=== PATIENT | male | born 1980 | race Hispanic/Latino ===

== ENCOUNTER 2018-05-04 16:01 | Inpatient (IN) | payer MEDICARE, MEDICAID, OTHER ==
[2018-05-04 16:47] LABS: BASO # 0.1 10^3/uL (0.0-0.2); BASO % 0.4 % (0.0-1.0); EOS # 0.2 10^3/uL (0.0-0.50); HEMATOCRIT 43.1 % (42.0-52.0); HEMOGLOBIN 14.2 g/dl (13.5-17.5); IMMATURE GRANULOCYTE % 0.4 % (0-3.0); LYMPH # 3.2 10^3/uL (1.5-4.5); LYMPH % 19.2 % (24.0-44.0); MEAN CORPUSCULAR HEMOGLOBIN 29.6 pg (27.0-33.0); MEAN CORPUSCULAR HGB CONC 32.9 g/dl (32.0-36.5); MEAN CORPUSCULAR VOLUME 89.8 fl (80.0-96.0); MONO # 0.8 10^3/uL (0.0-0.8); MONO % 4.8 % (0.0-5.0); NEUTROPHILS # 12.3 10^3/uL (1.8-7.7); NEUTROPHILS % 74.2 % (36.0-66.0); PLATELET COUNT, AUTOMATED 270 10^3/uL (150-450); RED CELL DISTRIBUTION WIDTH 12.6 % (11.5-14.5); WHITE BLOOD COUNT 16.5 10^3/uL (4.0-10.0)
[2018-05-04 16:57] LABS: LACTIC ACID SEPSIS PROTOCOL 1.7 MMOL/L (0.4-2.0)
[2018-05-04 16:58] LABS: ALBUMIN/GLOBULIN RATIO 1.11 (1.00-1.93); ALKALINE PHOSPHATASE 94 U/L (45-117); ALT/SGPT 34 U/L (12-78); ANION GAP 9 MEQ/L (8-16); AST/SGOT 20 U/L (7-37); BILIRUBIN,DIRECT 0.1 MG/DL (0.0-0.2); BILIRUBIN,TOTAL 0.4 MG/DL (0.2-1.0); BLOOD UREA NITROGEN 8 MG/DL (7-18); CALCIUM LEVEL 8.9 MG/DL (8.5-10.1); CARBON DIOXIDE LEVEL 27 MEQ/L (21-32); CHLORIDE LEVEL 105 MEQ/L (98-107); CREATININE FOR GFR 0.92 MG/DL (0.70-1.30); GLOMERULAR FILTRATION RATE > 60.0 (>60); GLUCOSE, FASTING 106 MG/DL (70-100); LIPASE 117 U/L (73-393); POTASSIUM SERUM 3.9 MEQ/L (3.5-5.1); SODIUM LEVEL 141 MEQ/L (136-145); TOTAL PROTEIN 7.6 GM/DL (6.4-8.2)
[2018-05-04] MEDS: NS 1,000 ML IV (17:40)
[2018-05-04] MEDS ORDERED: ISOVUE-370 76% 100ML VIAL (Q9967) As Ordered (17:51)
[2018-05-04 18:12] LABS: KETONE, URINE AUTO RFX 1+ mg/dL (NEGATIVE); LEUKOCYTE ESTERASE UR AUTO RFX NEGATIVE (NEGATIVE); MUCUS, URINE RFX SMALL (NEGATIVE); NITRITE, URINE AUTO RFX NEGATIVE (NEGATIVE); RBC, URINE AUTO RFX 0 /HPF (0-3); SPECIFIC GRAVITY UR AUTO RFX 1.012 (1.002-1.035); SQUAM EPITHELIAL CELL UR AURFX 0 /HPF (0-6); WBC, URINE AUTO RFX 1 /HPF (0-3)
[2018-05-04] MEDS ORDERED: ONDANSETRON 4MG/2ML VIAL (J2405) As Ordered (19:17)
[2018-05-04] MEDS: MORPHINE 4 MG/ML 1ML VIAL/SYRINGE (J2270) IV (19:30)
[2018-05-04] MEDS: ONDANSETRON 4MG/2ML VIAL (J2405) IV (19:30)
[2018-05-04] MEDS: CIPROFLOXACIN 400 MG in APPROPRIATE DILUENT 1 EA IV (20:08)
[2018-05-04] MEDS: metroNIDAZOLE 500 MG in APPROPRIATE DILUENT 1 EA IV (20:59)
[2018-05-04] MEDS: OMEPRAZOLE 20 MG CAP PO (21:00)
[2018-05-04] MEDS: HYDROmorphone HCL 1 MG/ML SYRINGE (J1170) IV (22:05)
[2018-05-05] MEDS ORDERED: ACETAMINOPHEN TAB 650MG DOSE (2X325MG) PO
[2018-05-05] MEDS ORDERED: ALBUTEROL 90 MCG/ACT 8GM HFA INHALER INH
[2018-05-05] MEDS ORDERED: BACLOFEN 10 MG TAB PO
[2018-05-05] MEDS: NS 1,000 ML IV ×2 (03:27→16:02)
[2018-05-05] MEDS: metroNIDAZOLE 500 MG in APPROPRIATE DILUENT 1 EA IV ×3 (04:09→20:13)
[2018-05-05] MEDS: KETOROLAC 30 MG/ML VIAL (J1885) IV ×3 (04:09→18:50)
[2018-05-05 06:48] LABS: BASO % 0.2 % (0.0-1.0); EOS % 0.1 % (0.0-3.0); HEMATOCRIT 38.1 % (42.0-52.0); HEMOGLOBIN 12.8 g/dl (13.5-17.5); IMMATURE GRANULOCYTE % 0.4 % (0-3.0); LYMPH # 1.9 10^3/uL (1.5-4.5); LYMPH % 11.3 % (24.0-44.0); MEAN CORPUSCULAR HEMOGLOBIN 29.7 pg (27.0-33.0); MEAN CORPUSCULAR HGB CONC 33.6 g/dl (32.0-36.5); MEAN CORPUSCULAR VOLUME 88.4 fl (80.0-96.0); MONO # 1.1 10^3/uL (0.0-0.8); MONO % 6.6 % (0.0-5.0); NEUTROPHILS # 13.4 10^3/uL (1.8-7.7); NEUTROPHILS % 81.4 % (36.0-66.0); PLATELET COUNT, AUTOMATED 241 10^3/uL (150-450); RED BLOOD COUNT 4.31 10^6/uL (4.30-6.10); RED CELL DISTRIBUTION WIDTH 12.9 % (11.5-14.5); WHITE BLOOD COUNT 16.4 10^3/uL (4.0-10.0)
[2018-05-05 07:06] LABS: ANION GAP 9 MEQ/L (8-16); BLOOD UREA NITROGEN 7 MG/DL (7-18); CALCIUM LEVEL 8.2 MG/DL (8.5-10.1); CARBON DIOXIDE LEVEL 26 MEQ/L (21-32); CHLORIDE LEVEL 105 MEQ/L (98-107); CREATININE FOR GFR 0.85 MG/DL (0.70-1.30); GLOMERULAR FILTRATION RATE > 60.0 (>60); GLUCOSE, FASTING 110 MG/DL (70-100); POTASSIUM SERUM 3.6 MEQ/L (3.5-5.1); SODIUM LEVEL 140 MEQ/L (136-145)
[2018-05-05] MEDS: OMEPRAZOLE 20 MG CAP PO ×2 (09:18→20:14)
[2018-05-05] MEDS: CIPROFLOXACIN 400 MG in APPROPRIATE DILUENT 1 EA IV ×2 (09:18→20:13)
[2018-05-05] MEDS: ENOXAPARIN 40 MG/0.4 ML SYRINGE (J1650) SC (09:19)
[2018-05-05] MEDS: ONDANSETRON 4MG/2ML VIAL (J2405) IV (09:28)
[2018-05-06] MEDS: metroNIDAZOLE 500 MG in APPROPRIATE DILUENT 1 EA IV (04:53)
[2018-05-06] MEDS: NS 1,000 ML IV (04:54)
[2018-05-06 07:32] LABS: BASO % 0.2 % (0.0-1.0); EOS % 0.3 % (0.0-3.0); HEMATOCRIT 36.2 % (42.0-52.0); HEMOGLOBIN 11.8 g/dl (13.5-17.5); IMMATURE GRANULOCYTE % 0.4 % (0-3.0); LYMPH % 13.9 % (24.0-44.0); MEAN CORPUSCULAR HEMOGLOBIN 29.2 pg (27.0-33.0); MEAN CORPUSCULAR HGB CONC 32.6 g/dl (32.0-36.5); MEAN CORPUSCULAR VOLUME 89.6 fl (80.0-96.0); MONO # 1.1 10^3/uL (0.0-0.8); MONO % 7.8 % (0.0-5.0); NEUTROPHILS # 10.9 10^3/uL (1.8-7.7); NEUTROPHILS % 77.4 % (36.0-66.0); PLATELET COUNT, AUTOMATED 214 10^3/uL (150-450); RED BLOOD COUNT 4.04 10^6/uL (4.30-6.10); RED CELL DISTRIBUTION WIDTH 12.8 % (11.5-14.5); WHITE BLOOD COUNT 14.1 10^3/uL (4.0-10.0)
[2018-05-06 07:53] LABS: ALBUMIN/GLOBULIN RATIO 0.88 (1.00-1.93); ALKALINE PHOSPHATASE 80 U/L (45-117); ALT/SGPT 23 U/L (12-78); ANION GAP 9 MEQ/L (8-16); AST/SGOT 15 U/L (7-37); BILIRUBIN,TOTAL 0.5 MG/DL (0.2-1.0); BLOOD UREA NITROGEN 5 MG/DL (7-18); CALCIUM LEVEL 7.9 MG/DL (8.5-10.1); CARBON DIOXIDE LEVEL 26 MEQ/L (21-32); CHLORIDE LEVEL 108 MEQ/L (98-107); CREATININE FOR GFR 0.81 MG/DL (0.70-1.30); GLOMERULAR FILTRATION RATE > 60.0 (>60); GLUCOSE, FASTING 100 MG/DL (70-100); MAGNESIUM LEVEL 1.9 MG/DL (1.8-2.4); POTASSIUM SERUM 3.7 MEQ/L (3.5-5.1); SODIUM LEVEL 143 MEQ/L (136-145); TOTAL PROTEIN 6.4 GM/DL (6.4-8.2)
[2018-05-06] MEDS: CIPROFLOXACIN 400 MG in APPROPRIATE DILUENT 1 EA IV (08:05)
[2018-05-06] MEDS: KETOROLAC 30 MG/ML VIAL (J1885) IV (08:18)
[2018-05-06] MEDS: OMEPRAZOLE 20 MG CAP PO (08:18)
[2018-05-06] MEDS: ENOXAPARIN 40 MG/0.4 ML SYRINGE (J1650) SC (08:18)
== END 2018-05-06 13:50 | disposition home or self-care (01) | DRG 392 ==
LOC: M ED INP 23:56 → M MS4PR 05-05 03:21 → M PED 05-05 15:53 → M ED 16:01
DX: K57.32 Diverticulitis of large intestine without perforation or abscess without bleeding (principal); M54.40 Lumbago with sciatica, unspecified side; D72.829 Elevated white blood cell count, unspecified

== ENCOUNTER → 2018-05-25 | Outpatient (REF) | LOC: M SMT 15:16 | DX: Z00.00 Encounter for general adult medical examination without abnormal findings (principal) ==

== ENCOUNTER 2018-10-13 07:35 | Day surgery (SDC) | payer OTHER, MEDICARE, MEDICAID ==
[~2018-10-13 07:35] MED LIST: LIDOCAINE 2% INJ 100 MG/5 ML SDV (FOR ANES.) As Ordered; PROPOFOL 200 MG/20 ML VIAL As Ordered
[2018-10-13] MEDS: NS 1,000 ML IV (07:45)
== END 2018-10-13 09:51 | disposition home or self-care (01) ==
LOC: M OPP 07:35
DX: K57.30 Diverticulosis of large intestine without perforation or abscess without bleeding (principal); K64.0 First degree hemorrhoids; D12.6 Benign neoplasm of colon, unspecified
CPT/HCPCS: 45380

== ENCOUNTER → 2019-11-25 | Outpatient (CLI) | payer OTHER ==
[~2019-11-25] MED LIST changes: +BACL10TA2 PO; +CIPR-249 PO; +CIPR500T3 PO; +FLAG250T PO; +FLAG500T PO; +FLEX10TA2 PO; +GEMF600T PO; +IBUPPOW25 PO; -LIDOCAINE 2% INJ 100 MG/5 ML SDV (FOR ANES.) As Ordered; +NAPR500T2 PO; +OMEP-172 PO; +OMEP40CA97 PO; +OMEPPOW18 PO; +OXYC1TAB23 PO; -PROPOFOL 200 MG/20 ML VIAL As Ordered; +SENN1TAB3 PO; +SENO8.6T9 PO; +SIME1CAP5 PO; +VENTAER INH
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
== END ==
LOC: M PAIN 10:30
PROVIDERS: ATTEND Family Medicine
DX: M51.16 Intervertebral disc disorders with radiculopathy, lumbar region (principal)

== ENCOUNTER → 2019-12-23 | Outpatient (CLI) | payer OTHER ==
[~2019-12-23] MED LIST changes: -OMEP-172 PO; +OMEP1CAP73 PO
--- NOTE | 2019-12-27 02:59 | ECWPNPC ---
PATIENT NAME: HARDEEP LEBRON : 1980 GENDER: MALE VISIT DATE: 12/23/2019 DISCHARGE DATE: 12/23/19 1215 VISIT LOCKED DATE TIME: PHYSICIAN: PILAR BRUNO RESOURCE: PILAR BRUNO REASON FOR APPOINTMENT 1. MEDICATION LOW BACK PAIN HISTORY OF PRESENT ILLNESS HISTORY OF PRESENT ILLNESS: PAIN THE PATIENT DESCRIBES THE PAIN... 39 YEAR OLD MALE IN FOR CHRONIC PAIN FOLLOW UP. AT LAST CLINIC VISIT HE WAS STARTED ON GABAPENTIN AND ADMITS TODAY THAT THIS HAS BEEN HELPFUL IN REDUCING HIS PAIN. HE RATES HIS PAIN AT A 3/10 CURRENLTY AND DESCRIBES IT ACHING, SHARP, AND SORE. FALL RISK SCREENING: SCREENING :NO FALLS REPORTED IN THE LAST YEAR CURRENT MEDICATIONS TAKING OMEPRAZOLE 20 MG CAPSULE DELAYED RELEASE 1 CAPSULE 30 MINUTES BEFORE MORNING MEAL ORALLY ONCE A DAY TAKING CYCLOBENZAPRINE HCL 10 MG TABLET 1 TABLET ORALLY THREE TIMES DAILY NEEDED TAKING TRAMADOL HCL 50 MG TABLET 1 TABLET NEEDED ORALLY THREE TIMES DAILY NEEDED TAKING DICYCLOMINE HCL 10 MG CAPSULE 2 CAPSULES ORALLY THREE TIMES A DAY TAKING METOPROLOL SUCCINATE 50 MG CAPSULE ER 24 HOUR SPRINKLE 1 CAPSULE ORALLY ONCE A DAY TAKING VITAMIN D (ERGOCALCIFEROL) 1.25 MG (75731 UT) CAPSULE 1 CAPSULE ORALLY ONCE A WEEK TAKING GABAPENTIN 300 MG CAPSULE 1 CAPSULE ORALLY THREE TIMES DAILY START WEEK 3 NOT-TAKING GABAPENTIN 100 MG CAPSULE 1 CAPSULE ORALLY THREE TIMES DAILY MEDICATION LIST REVIEWED AND RECONCILED WITH THE PATIENT PAST MEDICAL HISTORY LOW BACK PAIN BORDERLINE HYPERTENSION NECK PAIN KNEE PAIN DIVERTICULITIS ALLERGIES N.K.D.A. SURGICAL HISTORY RIGHT KNEE FAMILY HISTORY FATHER: ALIVE, DIAGNOSED WITH DIABETES MOTHER: ALIVE, HYPERTENSION 1 BROTHER(S) , 1 SISTER(S) . 2 SON(S) , 1 DAUGHTER(S) - HEALTHY. MOM WITH CADONE BROTHER WITH DIABETES, . SOCIAL HISTORY GENERAL: TOBACCO USE ARE YOU A:NONSMOKER PAIN CLINIC PFS, CLERGY, PUBLIC HEALTH REFERRALS HAS THE PATIENT BEEN EDUCATED REGARDING HIS/HER PLAN OF CARE?YES HAS THE PATIENT BEEN EDUCATED REGARDING PAIN, THE RISK FOR PAIN, THE IMPORTANCE OF EFFECTIVE PAIN MANAGEMENT, AND THE PAIN ASSESSMENT PROCESS?YES LATEX QUESTIONNAIRE LATEX ALLERGY : HAVE YOU EVER DEVELOPED ANY TYPE OF REACTION AFTER HANDLING LATEX PRODUCTS SUCH RUBBER GLOVES, CONDOMS, DIAPHRAGMS, BALLOONS, SOCKS, OR UNDERWEAR?NO LATEX ALLERGY : HAVE YOU EVER DEVELOPED ANY TYPE OF REACTION DURING OR AFTER DENTAL APPOINTMENT, VAGINAL/RECTAL EXAMINATION, SURGICAL PROCEDURE, OR ANY OTHER EXPOSURE?NO DATE ASKED : 11/17/2019 LATEX RISK : HAVE YOU EVER HAD ANY DIFFICULTY BREATHING OR HIVES AFTER EATING OR HANDLING ANY FRUITS, OR VEGETABLES; SUCH KIWI, BANANAS, STONE FRUITS, OR CHESTNUTSNO LATEX RISK : DO YOU HAVE A PREVIOUS PERSONAL HISTORY OF MORE THAN NINE SURGERIES, SPINA BIFIDA, OR REPEATED CATHERIZATIONS? NO LATEX RISK : ARE YOU FREQUENTLY EXPOSED TO LATEX PRODUCTS IN YOUR OCCUPATION?NO CAFFEINE CAFFEINE USE?YES COFFEE 1-2 CUPS ADVANCE DIRECTIVE ADVANCE DIRECTIVE DISCUSSED WITH PATIENT:YES PT HAS NO ADVANCED DIRECTIVES, DECLINES INFORMATION OR ASSISTANCE AT THIS TIME 12/23/2019 DIET: REGULAR. MU-ISM [id number] ORIENTAL ORTHODOX LANGUAGE LANGUAGES SPOKEN:BOTH GERMAN AND DUTCH AND TELUGU DOMESTIC VIOLENCE DO YOU FEEL SAFE IN YOUR ENVIRONMENT?YES RECREATIONAL DRUG USE DRUG USE?NO LEARNING BARRIERS / SPECIAL NEEDS BARRIERS TO LEARNING?NO HEARING IMPAIRED?NO VISION IMPAIRED?YES WEARS GLASSES COGNITIVELY IMPAIRED?NO READINESS TO LEARN?YES LEARNING PREFERENCES?NO LEARNING CAPABILITIES PRESENT?YES EMOTIONAL BARRIERS?NO SPECIAL DEVICES?NO DIRECTOR EXPORT NEEDED?NO 11/17/19 NEW PATIENT CONSULT PRE SCREENING 1700 LAS. HOSPITALIZATION/MAJOR DIAGNOSTIC PROCEDURE BACK PAIN REVIEW OF SYSTEMS REVIEWED BY: PROVIDER: TOMMIE BERRY-C . CONSTITUTIONAL: ANY CHANGE IN YOUR MEDICAL CONDITION? NO . CHILLS NO . FEVER NO . INFECTION: DO YOU HAVE NEW INFECTIONS? NO . DO YOU HAVE HISTORY OF MRSA? NO . MUSCULOSKELETAL: ANY NEW PATTERNS OF PAIN OR NUMBNESS? NO . GASTROENTEROLOGY: ANY NEW CHANGE IN BOWEL CONTROL? NO . GENITOURINARY: ANY NEW CHANGE IN BLADDER CONTROL? NO . IS THERE A CHANCE YOU COULD BE ? NO . HEMATOLOGY/LYMPH: DO YOU TAKE ANY BLOOD THINNERS? (FOR EXAMPLE- COUMADIN, PLAVIX, AGGRENOX, PLATEL, PRADAXA, OR XARELTO) NO . WHEN WAS YOUR LAST DOSE? DATE: TIME: . NEUROLOGY: HAVE YOU FALLEN IN THE PAST 12 MONTHS? NO . ANY NEW EXTREMITY NUMBNESS OR WEAKNESS? NO . CARDIOLOGY: DO YOU HAVE A PACEMAKER OR DEFIBRILLATOR? NO . RESPIRATORY: HAVE YOU BEEN SICK IN THE PAST WEEK? NO . FEVER NO . FLU LIKE SYMPTOMS? NO . COUGH NO . INTEGUMENTARY: DO YOU HAVE ANY RASHES OR OPEN SORES? NO . ALLERGIC/IMMUNO: ARE YOU ALLERGIC TO IV DYE? NO . ANY NEW ALLERGIES? NO . PSYCHIATRIC: DO YOU HAVE THOUGHTS OF HURTING YOURSELF OR SOMEONE ELSE? NO . ARE YOU ABUSED, NEGLECTED, OR IN AN UNSAFE ENVIRONMENT? NO . ENDOCRINOLOGY: ARE YOU DIABETIC? NO . OTHER: DO YOU NEED ANY PRESCRIPTIONS? NO . IF YES, PLEASE LIST: ____ . ANY NEW PROBLEMS WITH YOUR MEDICATIONS? NO . WHEN DID YOU LAST EAT? ____ . WHEN DID YOU LAST DRINK? ____ . WHAT DID YOU LAST DRINK? ____ . NAME OF PERSON DRIVING YOU HOME? ____ . DO YOU HAVE ANY OTHER QUESTIONS OR CONCERNS NO . VITAL SIGNS WT 298.6 LBS, HT 71 IN, BMI 41.64 INDEX, BP 137/74 MM HG, HR 84 /MIN, RR 16 /MIN, TEMP 98.5 F, OXYGEN SAT % 99%, SAFE IN ENV? (Y/N) YES, REVIEWED BY: ROSALINDA. EXAMINATION GENERAL EXAMINATION: GENERALNO ACUTE DISTRESS, WELL NOURISHED AND HYDRATED. PSYCHAPPROPRIATE MOOD AND AFFECT . LUNGS:CLEAR TO AUSCULTATION BILATERALLY, NO WHEEZES, RHONCHI, RALES. HEART:NO MURMURS, REGULAR RATE AND RHYTHM. ASSESSMENTS INTERVERTEBRAL DISC DISORDER WITH RADICULOPATHY OF LUMBAR REGION - M51.16 (PRIMARY) TREATMENT INTERVERTEBRAL DISC DISORDER WITH RADICULOPATHY OF LUMBAR REGION START GABAPENTIN CAPSULE, 400 MG, 1 CAPSULE, ORALLY, THREE TIMES DAILY, 90 DAYS, 270 CLINICAL NOTES: 39 YEAR OLD MALE IN FOR CHRONIC PAIN FOLLOW UP. GIVEN PRESENTING SYMPTOMS AND RESULTS OF PHYSICAL EXAMINATION RECOMMEND CONTINUED USE OF GABAPENTIN WITH FOLLOW UP IN 3 MONTHS. PATIENT HAS EXPRESSED UNDERSTANDING OF AND WAS IN AGREEMENT WITH TX PLAN. GIVEN TIME TO ASK QUESTIONS AND EXPRESS CONCERNS.. PREVENTIVE MEDICINE PAIN CLINIC TEACHING: MEDICATIONS MEDICATION CHANGES REVIEWED WITH PATIENT, PATIENT VERBALIZES UNDERSTANDING. 12/23/2019 ROSALINDA. PROCEDURE CODES FA211 ESTABILISHED PATIENT [facility] CHARGE DISPOSITION & COMMUNICATION FOLLOW UP 3 MONTHS (REASON: BACK PAIN) ELECTRONICALLY SIGNED BY JAMAL RODNEY ON 12/26/2019 AT 08:35 AM EST DISCLAIMER : THIS IS A VISIT SUMMARY EXTRACTED FROM THE [employer] CHART. IT IS NOT A COPY OF THE [employer] PROGRESS NOTE. KONG
== END ==
LOC: M PAIN 11:30
PROVIDERS: ATTEND Family Medicine
DX: M51.16 Intervertebral disc disorders with radiculopathy, lumbar region (principal); G89.29 Other chronic pain; E66.01 Morbid (severe) obesity due to excess calories; Z68.41 Body mass index [BMI] 40.0-44.9, adult; Z79.899 Other long term (current) drug therapy

== ENCOUNTER → 2020-03-19 | Outpatient (CLI) | payer OTHER | LOC: M PAIN 10:15 | PROVIDERS: ATTEND Family Medicine | DX: Z53.9 Procedure and treatment not carried out, unspecified reason (principal) ==

== ENCOUNTER 2023-05-02 16:34 | Emergency (ER) | payer OTHER ==
[~2023-05-02] VITALS: Ht 182.9 cm; Wt 136.4 kg
[~2023-05-02 16:34] MED LIST changes: +OMEP40CA4 PO; -OMEP40CA97 PO
[2023-05-02 16:51] VITALS: TEMP 97
[2023-05-02 19:31] VITALS: BP 168/95; O2SAT 99
== END 2023-05-02 19:51 | disposition home or self-care (01) ==
LOC: EDBD 16:34 → M ED 16:34
DX: F12.120 Cannabis abuse with intoxication, uncomplicated (principal); I10 Essential (primary) hypertension; Z79.899 Other long term (current) drug therapy

== ENCOUNTER → 2024-01-21 | Outpatient (REF) | payer OTHER ==
[2024-01-21 18:45] LABS: BASO # 0.1 10^3/uL (0.0-0.2); BASO % 0.5 % (0.0-1.0); EOS # 0.1 10^3/uL (0.0-0.5); EOS % 1.2 % (0.0-3.0); HEMATOCRIT 42.5 % (42.0-52.0); HEMOGLOBIN 13.6 g/dl (13.5-17.5); LYMPH # 2.1 10^3/uL (1.5-5.0); LYMPH % 19.2 % (24.0-44.0); MEAN CORPUSCULAR HEMOGLOBIN 29.4 pg (27.0-33.0); MONO # 0.7 10^3/uL (0.0-0.8); MONO % 6.6 % (2.0-8.0); NEUTROPHILS % 72.1 % (36.0-66.0); PLATELET COUNT, AUTOMATED 299 10^3/uL (150-450); RED BLOOD COUNT 4.62 10^6/uL (4.30-6.10); WHITE BLOOD COUNT 11.1 10^3/uL (4.0-10.0)
[2024-01-21 18:58] LABS: HEMOGLOBIN A1c 5.4 % (4.0-6.0)
[2024-01-21 19:19] LABS: ALKALINE PHOSPHATASE 98 U/L (46-116); ALT/SGPT 24 U/L (7.0-40); AST/SGOT 19 U/L (<34); BILIRUBIN,TOTAL 0.3 MG/DL (0.3-1.2); BLOOD UREA NITROGEN 14 MG/DL (9-23); CALCIUM LEVEL 9.6 MG/DL (8.5-10.1); CARBON DIOXIDE LEVEL 29 MMOL/L (20-31); CHLORIDE LEVEL 105 MMOL/L (98-107); CHOLESTEROL LEVEL 218 MG/DL (<200); CREATININE FOR GFR 0.72 MG/DL (0.70-1.30); GLOMERULAR FILTRATION RATE > 60.0 (>60); GLUCOSE, FASTING 82 MG/DL (60-100); HDL CHOLESTEROL 41.1 MG/DL (>40); LDL CHOLESTEROL 142.7 MG/DL (<100); NON-HDL-C 176.9 MG/DL; POTASSIUM SERUM 4.8 MMOL/L (3.5-5.1); SODIUM LEVEL 138 MMOL/L (136-145); TOTAL PROTEIN 7.3 G/DL (5.7-8.2); TRIGLYCERIDES LEVEL 171 MG/DL (<150)
[2024-01-21 19:20] LABS: THYROID STIMULATING HORMONE 1.849 uIU/ML (0.55-4.78); TOTAL 25(OH) VITAMIN D 16.2 NG/ML (20.0-100.0)
== END ==
LOC: M LAB REF 17:10
PROVIDERS: ATTEND Nurse Practitioner Family
DX: E66.3 Overweight (principal); E55.9 Vitamin D deficiency, unspecified; R53.83 Other fatigue

== ENCOUNTER → 2024-04-05 | Outpatient (REF) | payer OTHER ==
[2024-04-05 17:23] LABS: BASO # 0.1 10^3/uL (0.0-0.2); BASO % 0.8 % (0.0-1.0); EOS # 0.1 10^3/uL (0.0-0.5); EOS % 1.4 % (0.0-3.0); HEMOGLOBIN 13.2 g/dl (13.5-17.5); LYMPH # 2.9 10^3/uL (1.5-5.0); LYMPH % 30.8 % (24.0-44.0); MEAN CORPUSCULAR HEMOGLOBIN 29.1 pg (27.0-33.0); MEAN CORPUSCULAR HGB CONC 32.2 g/dl (32.0-36.5); MEAN CORPUSCULAR VOLUME 90.3 fl (80.0-96.0); MONO # 0.7 10^3/uL (0.0-0.8); MONO % 7.3 % (2.0-8.0); NEUTROPHILS # 5.5 10^3/uL (1.5-8.5); NEUTROPHILS % 59.4 % (36.0-66.0); PLATELET COUNT, AUTOMATED 293 10^3/uL (150-450); RED BLOOD COUNT 4.54 10^6/uL (4.30-6.10); WHITE BLOOD COUNT 9.3 10^3/uL (4.0-10.0)
== END ==
LOC: M LAB REF 16:41
PROVIDERS: ATTEND Nurse Practitioner Family
DX: D72.829 Elevated white blood cell count, unspecified (principal)